=== PATIENT | female | born 1990 | race African-American/Black ===

== ENCOUNTER 2016-06-20 17:20 | Emergency (ER) | payer OTHER ==
[~2016-06-20] VITALS: Ht 165.1 cm; Wt 83.9 kg
[~2016-06-20 17:20] MED LIST: AMOXICILLIN500 M2 PO; AMOXICILLIN500 MG PO; HYDROCODONE/ACE1 TA1 PO; IBU800 MG PO; MOTRIN 600 MG600 MG PO; NAPROXEN500 MG PO; PERCOCET 325 MG1 TA2 PO; PRENATAL ONE D1 EACH PO; PROMETHAZINE25 M1 PO; TRAMADOL HCL50 MG PO; TRAMADOL50 MG PO; TYLENOL WITH C1 EACH PO; ZOFRAN ODT4 M1 SL; ZOFRAN ODT4 MG PO
[2016-06-20 17:25] VITALS: BP 118/74
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
[2016-06-20] MEDS ORDERED: ROBAXIN-750750 M1 PO (17:55)
[2016-06-20] MEDS ORDERED: IBUPROFEN800 M1 PO (17:55)
[2016-06-20] MEDS ORDERED: OXYCODONE HCL5 M2 PO (17:55)
== END 2016-06-20 18:09 ==
LOC: ERH 17:20
DX: M79.641 Pain in right hand (principal)